=== PATIENT | male | born 1960 | race Caucasian/White ===

== ENCOUNTER → 2017-06-18 | Outpatient (CLI) | payer OTHER ==
[2016-02-11 14:28] VITALS: BP 185/97
--- NOTE | 2017-06-18 14:48 | CT ---
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 Sag ittal and coronal reformats were performed and reviewed. Dose reduction techniques including Automat ed Exposure Control (AEC) and adjustment of mA and kV were utilized. Findings: There is a spinal stimulator device noted with migrated/malpositioned leads withdrawn into the surface supervisor ior elements at the level of T10-T11. There are postsurgical changes from left lateral fusion and corpectomy spanning T12 through L2. There is a chronic fracture of L1; the left L1 pedicle is also removed. The remaining vertebral bodies evelio ear intact. The disc spaces are preserved. No acute fracture or abnormal perihardware lucency is iden tified. Mild multilevel facet degenerative changes are present. No high-grade spinal or foraminal randy nosis is identified. Incidental note is made of bilateral nephrolithiasis. IMPRESSION: 1. Spinal stimulator leads have migrated caudally, positioned between the posterior elements at T10-T 11. Correlate clinically. 2. Postsurgical changes spanning T12 through L2 status post lateral body fusion and corpectomy with c hronic appearing fracture at L1. 3. Incidental note of bilateral nephrolithiasis. Reported By:
== END ==
LOC: RAD 13:35
PROVIDERS: ATTEND Internal Medicine
DX: M51.16 Intervertebral disc disorders with radiculopathy, lumbar region (principal)
CPT/HCPCS: 72131